=== PATIENT | male | born 1955 | race Caucasian/White ===

== ENCOUNTER 2020-11-28 21:31 | Emergency (ER) | payer OTHER ==
[~2020-11-28 21:31] MED LIST: Iopamidol-370 76% 500 ML 1 ML ONE
[2020-11-28 23:13] LABS: #Eosinphils 0.3 thou/uL (0.0-0.7); #Lymphocytes 2.1 thou/uL (1.20-3.40); #Neutrophils 3.6 thou/uL (1.40-6.50); %Basophils 0.6 % (0.0-1.0); %Eosinophils 4.8 % (0.0-10.0); %Lymphocytes 29.6 % (21.0-51.0); %Monocytes 13.9 % (0.0-10.0); %Neutrophils 51.2 % (42.0-75.0); Hemoglobin 16.1 g/dL (14.0-18.0); Mean Corpuscular HGB CONC 36.2 g/dL (32.0-36.0); Mean Corpuscular Volume 99.4 fL (78.0-98.0); Mean Platelet Volume 7.5 fL (7.4-10.4); Platelet Count 206 thou/uL (130-400); Red Blood Cell (RBC) Count 4.46 mill/uL (4.70-6.10)
[2020-11-28 23:30] LABS: Anion Gap 18 mmol/L (10-20); BUN (Urea Nitrogen) 16 mg/dL (8.4-25.7); Calc. Creatinine Clearance 0 mL/min (70-130); Calcium 9.9 mg/dL (7.8-10.44); Carbon Dioxide 24 mmol/L (23-31); Chloride 100 mmol/L (98-107); Glucose 90 mg/dL (80-115); Potassium 3.9 mmol/L (3.5-5.1); Sodium 138 mmol/L (136-145)
== END 2020-11-29 01:04 | disposition home or self-care (01) ==
LOC: ERS 21:31
DX: R22.1 Localized swelling, mass and lump, neck (principal); I25.2 Old myocardial infarction
CPT/HCPCS: 36415; 70491; 80048; 85025

== ENCOUNTER 2022-05-20 08:26 | Outpatient (CLI) | payer OTHER | END 2022-05-20 08:27 | disposition home or self-care (01) | LOC: BICCT 08:26 | DX: R59.0 Localized enlarged lymph nodes (principal) | CPT/HCPCS: 70491; 82565 ==

== ENCOUNTER 2022-07-06 11:45 | Outpatient (CLI) | payer OTHER | END 2022-07-06 11:46 | disposition home or self-care (01) | LOC: PET 11:45 | DX: R59.9 Enlarged lymph nodes, unspecified (principal) | CPT/HCPCS: 78815; A9552 ==